=== PATIENT | female | born 1940 | race Caucasian/White ===

== ENCOUNTER → 2016-05-14 | Outpatient (CLI) | payer MEDICARE ==
[~2016-05-14] MED LIST: ASA CHILDREN'S81 MG PO; ASPIR 8181 MG PO; ASPIR-LOW81 MG PO; CALCIUM 600 +1 EAC3 PO; CALTRATE-600 W600 MG PO; CELEXA40 MG PO; CIPRO DPS500 MG PO; CRESTOR40 MG PO; ELAVIL-DPS10 MG PO; ELIQUIS5 MG PO; FISH OIL 1,2001 EAC2 PO; FLAGYL-DPS500 MG PO; GLUCOPHAGE-DPS500 MG PO; HYDROCODONE 10M10 MG PO; IMDUR DPS30 MG PO; LISINOPRIL10 MG PO; LYRICA25 MG PO; MAALOX DPS30 ML PO; MECLIZINE HCL12.5 MG PO; MIRALAX DPS17 GM PO; NITROSTAT0.4 MG SL; OMEGA-3 DPS1000 MG PO; PROTONIX40 MG PO; RANEXA500 MG PO; SURFAK DPS240 MG PO; TOPROL XL DPS25 MG PO; TOPROL XL25 MG PO; TYLENOL DPS325 MG PO; VITAMIN B-121000 MCG PO; VITAMIN D-32000 UNI1 PO; VITAMIN D1000 UNI1 PO; ZESTRIL DPS5 MG PO
== END | disposition home or self-care (01) ==
LOC: RAD.S 05-13 11:34
DX: M25.562 Pain in left knee (principal)

== ENCOUNTER → 2016-06-25 | Outpatient (CLI) | payer MEDICARE | END | disposition home or self-care (01) | DX: M79.605 Pain in left leg (principal); J00 Acute nasopharyngitis [common cold] ==

== ENCOUNTER → 2016-06-27 | Outpatient (CLI) | payer MEDICARE | END | disposition home or self-care (01) | LOC: RAD.S 06-26 14:46 | DX: M79.604 Pain in right leg (principal); M79.605 Pain in left leg; I82.890 Acute embolism and thrombosis of other specified veins; I87.2 Venous insufficiency (chronic) (peripheral) ==